=== PATIENT | male | born 1970 | race Two or more races ===

== ENCOUNTER 2018-11-23 13:27 | Emergency (ER) | payer SELFPAY ==
[~2018-11-23] VITALS: Ht 185.4 cm; Wt 108.9 kg
[2018-11-23 14:28] VITALS: BP 137/92
[2018-11-23] MEDS ORDERED: HYDROCODONE/APAP 5/325MG 1 EACH TABLET ONE (15:12)
[2018-11-23] MEDS: HYDROCODONE/APAP 5/325MG 1 EACH TABLET PO ONE (15:16)
--- NOTE | 2018-11-23 16:43 | NUR ---
PT LEFT W/OUT ACI AND SCRIPT.
== END 2018-11-23 16:46 | disposition home or self-care (01) ==
LOC: ER 13:32
DX: M25.561 Pain in right knee (principal); M54.2 Cervicalgia; F17.200 Nicotine dependence, unspecified, uncomplicated; W19.XXXA Unspecified fall, initial encounter; Y93.89 Activity, other specified; Y92.89 Other specified places as the place of occurrence of the external cause; Y99.8 Other external cause status
CPT/HCPCS: 73564-TC